=== PATIENT | female | born 1960 | race Caucasian/White ===

== ENCOUNTER 2016-08-27 15:09 | Emergency (ER) | payer BC ==
[2016-08-27] MEDS ORDERED: ONDANSETRON 4 MG/2ML 2 ML VIAL ONE (15:45)
[2016-08-27] MEDS ORDERED: KETOROLAC TROMETHAMINE 30 MG/ML 1 ML VIAL ONE (15:45)
[2016-08-27] MEDS ORDERED: HYDROMORPHONE HCL 1 MG/ML SYRINGE ONE (15:45)
--- NOTE | 2016-08-27 16:26 | RAD ---
Name: LINDSAY ECHAVARRIA Exam: Right wrist Comparison: None Clinical history: Trauma Findings: 3 views right wrist are submitted. Bone density is normal. There is an acute comminuted very impacted severely displaced moderately angulated intra-articular fracture of the distal right radial metaphysis. The distal ulna appears to be intact. Carpal alignment with respect to the major distal fragment is normal. Diffuse soft tissue swelling at the wrist is identified. Impression: Acute displaced comminuted impacted intra-articular fracture of the distal right radius
[2016-08-27] MEDS ORDERED: SODIUM CHLORIDE 0.9% 500 ML ONE (18:02)
[2016-08-27] MEDS ORDERED: PROPOFOL 20 ML IV ONE (18:02)
--- NOTE | 2016-08-27 18:45 | RAD ---
Name: LINDSAY ECHAVARRIA Exam: Right wrist Comparison: Prereduction films Clinical history: Fracture reduction Findings: 2 views the right wrist are submitted. Splint material is in place. There is a very comminuted impacted intra-articular fracture of the distal right radius. Angulation and impaction is improved. Distal ulna is intact. Carpal alignment is normal. Impression: Comminuted impacted intra-articular fracture of the distal right radius. Fracture fragment alignment is improved when compared to the prereduction films.
== END 2016-08-27 19:34 | disposition home or self-care (01) ==
LOC: ED 15:09
DX: S52.501A Unspecified fracture of the lower end of right radius, initial encounter for closed fracture (principal); V00.121A Fall from non-in-line roller-skates, initial encounter; Y93.51 Activity, roller skating (inline) and skateboarding; Z79.899 Other long term (current) drug therapy
CPT/HCPCS: 73110; 73100; 96375 ×3; 99284 ×2; 25605 ×2; 96374; J1170; J1885; J2405; J7040

== ENCOUNTER 2016-09-07 13:27 | Day surgery (SDC) | payer BC ==
--- NOTE | 2016-09-06 15:55 | HP ---
LINDSAY ECHAVARRIA : 1960 DATE ADMISSION: September 06, 2016 HISTORY OF PRESENT ILLNESS: A 55-year-old right-hand dominant female who fell on August 27, 2016 sustaining an injury to her right wrist. She was seen at the emergency department where x-rays demonstrated a comminuted distal radius fracture with significant dorsal displacement and angulation. She was placed into a sugar tong splint and sent for followup. On presentation to orthopedics, she complained of isolated right distal radius pain. She denies any numbness or tingling in the hand. She rates her pain right now about 3/10. She was seen by one of our physician assistants who ordered a CT scan for her to better delineate her intraarticular extension and now she is here today for followup and to schedule surgery for this wrist. She has no other extremity complaints and no previous injury to this site. PAST MEDICAL HISTORY: As documented. PAST SURGICAL HISTORY: As documented. REVIEW OF SYSTEMS: Negative today for any constitutional, cardiovascular or respiratory complaints. No recent constitutional symptoms to include fevers and chills. No recent cardiovascular symptoms to include chest pain or palpitations. No recent respiratory symptoms to include shortness of breath or recent infections. PHYSICAL EXAMINATION: GENERAL: This is a well-developed, well-nourished female in no acute distress. She is awake, alert and conversant throughout the encounter. CARDIOVASCULAR: Intact peripheral pulses on bilateral upper extremities. No significant edema on inspection of bilateral upper extremities. NEUROLOGIC: Patient had intact coordinated composite motion of the bilateral upper extremities and sensation intact to light touch in all distributions of bilateral upper extremities. PSYCHIATRIC: Patient was oriented to person, place and time and displayed appropriate mood and affect during the encounter. SKIN: Exam of the skin on bilateral upper extremities showed no significant scars, lesions, rashes or masses. EXTREMITIES: Focused musculoskeletal examination, normal resting sensation of the shoulders and elbows. Her right arm is in a sugar tong splint. She has a well perfused hand with intact sensation. She can move all digits both in flexion and extension. She has brisk capillary refill in all digits and the hand is warm. DIAGNOSTIC IMAGIN. Review of her x-rays shows a shortened comminuted dorsally displaced and angulated distal radius fracture with an intact ulna. 2. CT scan shows a significant comminution and does not appear to show adequate distal bony stock to be able to address this effectively with a volar plate. ASSESSMENT: A 55-year-old right-hand dominant female with a comminuted intraarticular distal radius fracture on the right side. PLAN: Plan will be for an external fixator in the operating room tomorrow. Risks, benefits, and alternatives were discussed with the patient. She elected to proceed. Informed consent was obtained and documented in the chart. We will see her tomorrow for surgery.
[2016-09-07] MEDS ORDERED: CEFAZOLIN SODIUM 2 GRAM PREMIX 100 ML IV PRN (13:30)
[2016-09-07] MEDS ORDERED: LACTATED RINGERS 1,000 ML ONE (13:32)
[2016-09-07] MEDS ORDERED: IV START KIT ONE (13:32)
[2016-09-07] MEDS ORDERED: CEFAZOLIN SODIUM 2 GRAM PREMIX 100 ML IV ONE (13:33)
[2016-09-07] MEDS ORDERED: PROPOFOL 20 ML IV ONE ×3 (13:52→16:59)
[2016-09-07] MEDS ORDERED: LIDOCAINE 2% (PRES FREE) 5 ML VIAL ONE (13:53)
[2016-09-07] MEDS ORDERED: FENTANYL 5 ML ONE (13:53)
[2016-09-07] MEDS ORDERED: MIDAZOLAM HCL 5 MG/5 ML VIAL ONE (13:53)
[2016-09-07] MEDS ORDERED: ROPIVACAINE 0.5% 30 ML VIAL ONE (14:46)
[2016-09-07] MEDS ORDERED: NERVE BLOCK PROCEDURAL TRAY 1 EACH ONE (14:47)
[2016-09-07] MEDS ORDERED: KETAMINE HCL UD SYRINGE 100 MG/2 ML IV ONE (16:18)
--- NOTE | 2016-09-07 17:20 | PCMBPN ---
Brief Post Op Note: Date of Procedure: 09/07/16 Start Time: 1630 Preoperative Diagnosis: 1. right distal radius fracture Postoperative Diagnosis: 1. Same Procedure: right wrist closed reduction and external fixation Surgeon: Paddy Muller MD Assist: Libby Mo Anesthesia: Carlos Rivera Findings: as above Condition: stable to PACU Complications: none IV Fluids: 1100 mLs of LR Urine Output: 0 mLs Estimated Blood Loss: 25 mLs Tourniquet Time: none Specimens: none Implants: Fly Wristjack Drains: none Pdady Muller MD
[2016-09-07] MEDS ORDERED: KETOROLAC TROMETHAMINE 30 MG/ML 1 ML VIAL ONE (17:45)
[2016-09-07] MEDS ORDERED: HYDROMORPHONE HCL 1 MG/ML SYRINGE IV PRN (17:49)
[2016-09-07] MEDS ORDERED: LACTATED RINGERS 1,000 ML IV SCH (17:49)
[2016-09-07] MEDS ORDERED: ONDANSETRON 4 MG/2ML 2 ML VIAL IV PRN (17:49)
[2016-09-07] MEDS ORDERED: DIPHENHYDRAMINE HCL 50 MG/1 ML VIAL IV PRN (17:49)
[2016-09-07] MEDS ORDERED: ACETAMINOPHEN 325 MG TABLET PO PRN (17:49)
[2016-09-07] MEDS ORDERED: OXYCODONE/ACETAMINOPHEN 5/325 MG TABLET PO PRN (17:49)
--- NOTE | 2016-09-07 17:49 | RAD ---
WRIST RIGHT 2 VIEWS HISTORY: Intraoperative fluoroscopy for ORIF. COMPARISONS: Plain films 08/27/2016. FINDINGS: 2 overhead intraoperative fluoroscopic images are provided for review. These images demonstrate external fixation and reduction of the patient's distal radial fracture. There is improved alignment in comparison to recent study. Evaluation of the osseous structures is limited given fluoroscopic technique. Fluoroscopy time: 1 minute 16 seconds. IMPRESSION: Intraoperative fluoroscopy as above. Please see orthopedist note regarding the procedure for further details.
[2016-09-07] MEDS ORDERED: KETOROLAC TROMETHAMINE 30 MG/ML 1 ML VIAL IV ONE (17:52)
[2016-09-07] MEDS ORDERED: ONDANSETRON 4 MG/2ML 2 ML VIAL ONE (19:31)
--- NOTE | 2016-09-07 20:20 | RAD ---
HISTORY: Postop external fixation. Subsequent encounter. COMPARISON: Films dating back to 111 TECHNIQUE: two view. Wrist Laterality:right FINDINGS: Bones: There is been placement of an external fixation device across the patient's distal radial fracture. Alignment is improved in comparison to prior examination. No bridging callus or periosteal reaction is noted. Continued area of impaction is present along the ulnar aspect of the radius. No new fracture or dislocation Joints: Normal Soft tissue: Soft tissue swelling about the carpus. IMPRESSION: Satisfactory postoperative exam.
--- NOTE | 2016-09-08 10:41 | OP ---
Joana ECHAVARRIA : 1960 [id number] DATE OF SERVICE: September 07, 2016 PREOPERATIVE DIAGNOSIS: Right distal radius fracture. POSTOPERATIVE DIAGNOSIS: Right distal radius fracture. PROCEDURE PERFORMED: RIGHT WRIST CLOSED REDUCTION EXTERNAL FIXATION. SURGEON: Paddy Muller M.D. ELEVATOR REPAIR MECHANIC: Jarrell Rubalcava ANESTHESIA: Tamar Bar.R.N.Simran SPECIMENS: No material was sent to the laboratory. ESTIMATED BLOOD LOSS: 25 mL FLUIDS REPLACED: 1,100 mL of crystalloid. TOURNIQUET TIME: None. DRAINS: None. IMPANTS: AG WristJack external fixator. INDICATIONS: This is a 55-year-old female with a comminuted right distal radius fracture from a fall several days prior to surgery. She has physical exam and radiographic findings, which suggests extensive comminution and unacceptable alignment parameters. Risks, benefits and alternatives for closed reduction and external fixation for her distal radius fracture were discussed with the patient and she elected to proceed with surgery. Informed consent was obtained and documented in the chart. She was placed on the schedule at the first available convenience. DESCRIPTION OF PROCEDURE: The patient was identified in the pre-operative holding area where she was marked with an indelible marker by the operating surgeon. She underwent an interscalene block by the anesthesia providers and was taken to the operating room where she was provided with intravenous sedation. She had a well padded pre-calibrated nonsterile tourniquet placed on her right upper arm and she received perioperative antibiotics. She was prepped and draped in the usual sterile fashion for surgery. A final operative time out was performed and confirmed by all members of the operative team. Using intraoperative fluoroscopy a provisional reduction was obtained by longitudinal traction. We determined that we were able to restore appropriate alignment parameters. At this point the guide for the AG WristJack metacarpal pins was brought onto the field. The radial side of the index metacarpal was marked and small incisions were made with blunt dissection down to the radial border of the index metacarpal. The metacarpal pins were placed across the index metacarpal and the proximal end entered the base of the middle finger metacarpal. The second metacarpal pin was placed using the guide bicortically through the index metacarpal. Attention was turned to placement of the radial pins. The targeting guide was used to determine the appropriate position for the pins. Again, stab incisions were made and blunt dissection was carried down to the radial border to ensure that we were not placing the pins through any neurovascular structures. Both pins were placed bicortically with good purchase. The metacarpal bar was applied and the construct of the AG WristJack was applied. Adjustments were made to the WristJack including volar flexion, extension and ulnar translation to restore appropriate alignment parameters to the distal radius. When we were satisfied with our position we locked down all of the adjustments and cut off the excess pins. The pin sites were irrigated and a sterile dressing of Xeroform was applied to the base of each pin. The pin sites were wrapped with Kerlix and an ALBERT bandage was applied. The drapes were removed. The patient was awakened from her sedation. She was transferred to a stretcher and taken postoperatively to the postanesthesia care unit in stable condition. There were no observed intraoperative complications during this procedure. Job [id number] Cc: [facility]
== END 2016-09-07 19:43 | disposition home or self-care (01) ==
LOC: SDC 13:27
PROVIDERS: ATTEND Orthopaedic Surgery
PROC: 0PSHXZZ Reposition Right Radius, External Approach (ICD-10-PCS; principal; 2016-09-07)
PROC: 2W3CXYZ Immobilization of Right Lower Arm using Other Device (ICD-10-PCS; 2016-09-07)
DX: S52.571A Other intraarticular fracture of lower end of right radius, initial encounter for closed fracture (principal); W19.XXXA Unspecified fall, initial encounter
CPT/HCPCS: 25606; 20690; 76000; 73100 ×2; L3982; J3010; J2795; J1885; J2250; J2405; J7120; J0690